=== PATIENT | female | born 1940 | race Caucasian/White ===

== ENCOUNTER 2024-06-07 12:22 | Emergency (ER) | payer OTHER, BC ==
--- OUTSIDE RECORDS SUMMARY | 2024-06-07 12:25 | XMS REPORT | Continuity of Care Document ---
Author Name Unknown Address [address] [facility]. 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 [id number]. [id number] [facility]
--- NOTE | 2024-06-07 12:50 | ER ---
Nurse's Notes [facility] Name: Wyatt Fabian Age: 83 yrs Sex: Female : 1940 Arrival Date: 06/07/2024 Time: 12:22 Bed 19 Private MD: Diagnosis: Epidermal cyst Presentation: 06/07 12:42 Chief complaint: Patient states: STATES LEFT FOOT SWELLING WITH BRUISING X 1 WEEK. db THINKS WAS BIT BY A SPIDER BUT UNSURE. IS ON ELOQUIS. TRIED HOME REMEDY OF SOAKING IN EPSUM SALT. AMBULATORY WITH CANE. Coronavirus screen: Client denies travel out of the [place] in the last 14 days. At this time, the client does not indicate any symptoms associated with coronavirus-19. Ebola Screen: Patient negative for fever greater than or equal to 101.5 degrees Fahrenheit, and additional compatible Ebola Virus Disease symptoms Patient denies exposure to infectious person. Patient denies travel to an Ebola-affected area in the 21 days before illness onset. No symptoms or risks identified at this time. Initial Sepsis Screen: Does the patient meet any 2 criteria? No. Patient's initial sepsis screen is negative. Does the patient have a suspected source of infection? No. Patient's initial sepsis screen is negative. Risk Assessment: Do you want to hurt yourself or someone else? Patient reports no desire to harm self or others. Onset of symptoms was June 07, 2024. 12:42 Method Of Arrival: Ambulatory 12:42 Acuity: DUNCAN 3 db Triage Assessment: 12:44 Bite description: bite sustained to left foot by an unknown animal, animal information: db vaccination(s) is not applicable. General: Appears in no apparent distress. comfortable, Behavior is calm, cooperative. Pain: Complains of pain in left foot. Neuro: Level of Consciousness is awake, alert, obeys commands, Oriented to person, place, time, situation. Derm: Skin is BRUISED, PURPLE AND BLUE. Historical: - Allergies: 12:44 Morphine; db - PMHx: 12:44 HEART HX; Hypothyroidism; db - PSHx: 12:44 HEART VALVE; BILATERAL HIP; BILATERAL KNEE; db - Immunization history:: Adult Immunizations unknown. - Infectious Disease History:: Denies. - Social history:: Smoking status: Patient denies any tobacco usage or history of. Screenin:58 [facility] ED Fall Risk Assessment (Adult) History of falling in the last 3 months, kc6 including since admission No falls in past 3 months (0 pts) Confusion or Disorientation No (0 pts) Intoxicated or Sedated No (0 pts) Impaired Gait No (0 pts) Mobility Assist Device Used No (0 pt) Altered Elimination No (0 pt) Score/Fall Risk Level 0 - 2 = Low Risk Oriented to surroundings. Abuse screen: Denies threats or abuse. Denies injuries from another. Nutritional screening: No deficits noted. Tuberculosis screening: No symptoms or risk factors identified. Assessment: 12:58 General: Appears in no apparent distress. comfortable, well groomed, well developed, kc6 Behavior is calm, cooperative, appropriate for age. Pain: Denies pain. Neuro: Level of Consciousness is awake, alert, obeys commands, Oriented to person, place, time, situation, Appropriate for age. Cardiovascular: Capillary refill < 3 seconds. Respiratory: Airway is patent Trachea midline Respiratory effort is even, unlabored, Respiratory pattern is regular, symmetrical. GI: No signs and/or symptoms were reported involving the gastrointestinal system. : No signs and/or symptoms were reported regarding the genitourinary system. EENT: No signs and/or symptoms were reported regarding the EENT system. Derm: Skin is intact, is healthy with good turgor, Skin is dry, Skin is normal, Skin temperature is warm Bruising that is dark purple, on left foot. Musculoskeletal: Circulation, motion, and sensation intact. Capillary refill < 3 seconds, Range of motion: intact in all extremities, Swelling present in left foot. Vital Signs: 12:42 BP 137 / 65; Pulse 94; Resp 18; Temp 98.3(O); Pulse Ox 97% ; Weight 95.25 kg; Height 5 db ft. 8 in. ; 12:42 Body Mass Index 31.93 (95.25 kg, 172.72 cm) db ED Course: 12:26 Patient arrived in ED. mr 12:28 [facility]-C [facility]5 12:28 Jenna Hernandez MD is Attending Physician. dr5 12:41 Frida Lucas RN is Primary Nurse. kc6 12:44 Triage completed. db 12:44 Arm band placed on Patient placed in an exam room. db 12:58 Patient has correct armband on for positive identification. Bed in low position. Call kc6 light in reach. Side rails up X 1. Adult w/ patient. Pulse ox on. NIBP on. Door closed. Noise minimized. Lights dimmed. Warm blanket given. Pillow given. 12:58 Patient maintains SpO2 saturation greater than 95% on room air. kc6 12:59 No provider procedures requiring assistance completed. Patient did not have IV access kc6 during this emergency room visit. Administered Medications: No medications were administered Medication: 12:59 VIS not applicable for this client. kc6 Outcome: 12:49 Discharge ordered by . dr5 12:59 Discharged to home ambulatory, with family, kc6 12:59 Condition: good 12:59 Discharge instructions given to patient, family, Instructed on discharge instructions, follow up and referral plans. medication usage, wound care, Demonstrated understanding of instructions, follow-up care, medications, wound care, Prescriptions given X 1, 12:59 Patient left the ED. kc6 Signatures: Leatha Ponce, Reg Reg mr Frida Lucas, RN RN kc6 Kathrin Farris, RN RN db Remy Wang, ADVERTISING DISPLAY ROTATOR-C ADVERTISING DISPLAY ROTATOR-Cdr5
--- NOTE | 2024-06-07 12:50 | EDPHYS ---
Physician Documentation [facility] Name: Wyatt Fabian Age: 83 yrs Sex: Female : 1940 Arrival Date: 06/07/2024 Time: 12:22 Bed 19 Private MD: ED Physician Jenna Hernandez HPI: 06/07 12:46 This 83 yrs old Female presents to ER via Ambulatory with complaints of dr5 Insect Bite. 12:46 Pt is a 83 year old female coming in with left foot pain / possible insect bite. Pt dr5 denies fever.. Historical: - Allergies: 12:44 Morphine; db - PMHx: 12:44 HEART HX; Hypothyroidism; db - PSHx: 12:44 HEART VALVE; BILATERAL HIP; BILATERAL KNEE; db - Immunization history:: Adult Immunizations unknown. - Infectious Disease History:: Denies. - Social history:: Smoking status: Patient denies any tobacco usage or history of. ROS: 12:46 Constitutional: as per hpi dr5 Exam: 12:46 Constitutional: This is a well developed, well nourished patient who is awake, alert, dr5 and in no acute distress. Head/Face: Normocephalic, atraumatic. Eyes: Pupils equal round and reactive to light, extra-ocular motions intact. Lids and lashes normal. Conjunctiva and sclera are non-icteric and not injected. Cornea within normal limits. Periorbital areas with no swelling, redness, or edema. Chest/axilla: Normal chest wall appearance and motion. Nontender with no deformity. No lesions are appreciated. Cardiovascular: Regular rate and rhythm with a normal S1 and S2. Normal PMI, no JVD. No pulse deficits. Respiratory: Lungs have equal breath sounds bilaterally, clear to auscultation. No rales, rhonchi or wheezes noted. No increased work of breathing, no retractions or nasal flaring. Abdomen/GI: Soft, non-tender, non-distended MS/ Extremity: Pulses equal, no cyanosis. Neurovascular intact. Full, normal range of motion. Neuro: Awake and alert, GCS 15, oriented to person, place, time, and situation. Cranial nerves II-XII grossly intact. Motor strength 5/5 in all extremities. Sensory grossly intact. Cerebellar exam normal. Normal gait. Psych: Awake, alert, with orientation to person, place and time. Behavior, mood, and affect are within normal limits. 12:46 Skin: Appearance: Color: normal in color, pink, Temperature: normal temperature, warm, Moisture: normal moisture, dry, cellulitis, is not appreciated, induration, is not appreciated, lesion(s), noted, and can be described as nontender, raised, Non-tender to palpation. Mild redness noted., , Vital Signs: 12:42 BP 137 / 65; Pulse 94; Resp 18; Temp 98.3(O); Pulse Ox 97% ; Weight 95.25 kg; Height 5 db ft. 8 in. ; 12:42 Body Mass Index 31.93 (95.25 kg, 172.72 cm) db MDM: 12:29 Patient medically screened. dr5 12:51 Differential diagnosis: contusion, Abscess, Epidermal Cyst, Cellulitis. Data reviewed: dr5 vital signs, nurses notes. Consideration of Admission/Observation Escalation of care including admission/observation considered. Considered admission for cellulitis spreading up leg with fever. Care significantly affected by the following Social Determinants of Health: Poor access to healthcare and/or lack of insurance, Poor access to transportation. 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 ED course: Epidermoid cyst noted to anterior midfoot with mild redness and no surrounding cellulitis. Will give course of Doxycline and have patient follow up with dermatology for discussion of cyst removal. Dermatology name / number given to family.. Administered Medications: No medications were administered Disposition Summary: 06/07/24 12:49 Discharge Ordered Notes: Location: Home dr5 Condition: Stable dr5 Diagnosis - Epidermal cyst dr5 Followup: dr5 - With: Emergency Department - When: As needed - Reason: Worsening of condition Followup: dr5 - With: Private Physician - When: 2 - 3 days - Reason: Recheck today's complaints, Continuance of care, Re-evaluation by your physician Discharge Instructions: - Discharge Summary Sheet dr5 - Epidermoid Cyst dr5 Forms: - Medication Reconciliation Form dr5 - Antibiotic Education dr5 - Prescription Opioid Use dr5 - Patient Portal Instructions dr5 - Leadership Thank You Letter dr5 Prescriptions: - Doxycycline Hyclate 100 mg Oral tablet - take 1 tablet ORAL route every 12 hours for 7 days; 14 tablet; Refills: 0, dr5 Product Selection Permitted Signatures: Kathrin Farris, RN RN Remy Aguiar, DIGITAL SALES PLANNER-C DIGITAL SALES PLANNER-Cdr5
[2024-06-07 13:18] VITALS: BP 137/65; TEMP 98.3; O2SAT 97
== END 2024-06-07 12:59 | disposition home or self-care (01) ==
LOC: ER 12:22
DX: L72.0 Epidermal cyst (principal)
CPT/HCPCS: 99283

== ENCOUNTER 2025-04-21 11:39 | Inpatient (IN) | payer OTHER, BC ==
--- OUTSIDE RECORDS SUMMARY | 2025-04-21 12:07 | XMS REPORT | Continuity of Care Document ---
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 Role Phone Darian Caceres DPM Attending Clinician [phone] DARIAN CACERES Attending Clinician Unavail able Payers Payer Name Policy Type Policy Number Effective Date Expirati on Date Source [email or web address] [id number] 2024 00:00:00 MEDICARE PART A AND B Medicare [id number] 2024 00:00:00 Problems Condition Name Condition Details Condition Category Status Onset Date Resolution Date Last Treatment Date Treating Clinician Comments Source Hypothyroi dism Hypothyroi dism Problem Active 05-20 00:00: 00 [facility] Idiopathic peripheral neuropathy Idiopathic Peripheral Neuropathy Problem Active 05-20 00:00: 00 [facility] Atrial fibrillati on Atrial Fibrillati on Problem Active 05-20 00:00: 00 [facility] Acid reflux Acid Reflux Problem Active 05-20 00:00: 00 [facility] Night sweats Night Sweats Problem Active 05-20 00:00: 00 [facility] Increased frequency of urination Increased Frequency of Urination Problem Active 05-20 00:00: 00 [facility] Allergies, Adverse Reactions, Alerts Allergy Name Allergy Type Status Severity Reaction(s) Onset Date Inactive Date Treating Clinician Comments Source Penicill in G Propensi ty to adverse reaction s Active 2023-09 00:00: 00 Deepika Pollock Epic Social History Social Habit Start Date Stop Date Quantity Comments Source ASSERTION Possible M marlys Pollock Epic Gender identity Damir patrice Pollock Epic Sexual orientation M emopatrice Pollock Epic Smoking Status Start Date Stop Date Source Tobacco smoking consumption unknown [facility] Never Smoker [facility] Medications Ordered Medication Name Filled Medication Name Start Date Stop Date Current Medication? Ordering Clinician Indication Dosage Frequency Signature (SIG) Comments Components Source Allergy Allergy No Allergy [facility] amiodarone 200 mg tablet Take 1 tablet every day by oral route. amiodarone 200 mg tablet Take 1 tablet every day by oral route. No 1 Q1D amiodarone 200 mg tablet Take 1 tablet every day by oral route. [facility] amitriptyli ne 75 mg tablet Take 1 tablet every day by oral route. amitriptyli ne 75 mg tablet Take 1 tablet every day by oral route. No 1 Q1D amitriptyl ine 75 mg tablet Take 1 tablet every day by oral route. [facility] Calcium 600 Calcium 600 No Ca lcium 600 [facility] Eliquis 5 mg tablet Take 1 tablet twice a day by oral route. Eliquis 5 mg tablet Take 1 tablet twice a day by oral route. No 1 BID Eliquis 5 mg tablet Take 1 tablet twice a day by oral route. [facility] gabapentin 300 mg capsule Take 1 capsule 3 times a day by oral route for 30 days. gabapentin 300 mg capsule Take 1 capsule 3 times a day by oral route for 30 days. No 1capsul e(s) TID gabapentin 300 mg capsule Take 1 capsule 3 times a day by oral route for 30 days. [facility] levothyroxi ne 125 mcg capsule Take 1 capsule every day by oral route. levothyroxi ne 125 mcg capsule Take 1 capsule every day by oral route. No 1capsul e(s) Q1D levothyrox ine 125 mcg capsule Take 1 capsule every day by oral route. [facility] pantoprazol e 40 mg tablet,valdo yed release Take 1 tablet every day by oral route. pantoprazol e 40 mg tablet,valdo yed release Take 1 tablet every day by oral route. No 1 Q1D pantoprazo le 40 mg tablet,del ayed release Take 1 tablet every day by oral route. [facility] tramadol 50 mg tablet Take 1 tablet every 6 hours by oral route. tramadol 50 mg tablet Take 1 tablet every 6 hours by oral route. No 1 Q6H tramadol 50 mg tablet Take 1 tablet every 6 hours by oral route. [facility] trazodone 50 mg tablet Take 1 tablet every day by oral route. trazodone 50 mg tablet Take 1 tablet every day by oral route. No 1 Q1D trazodone 50 mg tablet Take 1 tablet every day by oral route. [facility] Vitamin D3 Vitamin D3 No Vitamin D3 [facility] zolpidem 10 mg tablet Take 1 tablet every day by oral route. zolpidem 10 mg tablet Take 1 tablet every day by oral route. No 1 Q1D zolpidem 10 mg tablet Take 1 tablet every day by oral route. [facility] Vital Signs Vital Name Observation Time Observation Value Comments S ource BP Systolic 2024-05-20 00:00:00 143 mm[Hg] [facility] Body Weight 2024-05-20 00:00:00 210.2 [lb_av] [facility] BP Diastolic 2024-05-20 00:00:00 79 mm[Hg] [facility] Height 2024-05-20 00:00:00 68 [in_i] [facility] BMI (Body Mass Index) 2024-05-20 00:00:00 32 kg/m2 [facility] Procedures Procedure Date / Time Performed Performing Clinicia n Source Procedure on Hip 2020-09-02 00:00:00 [facility] Procedure on Knee 2020-09-02 00:00:00 [facility] Ophthalmology - Cataract Surgery 2015-09-02 00:00:00 [facility] Procedure on Hip 2012-09-02 00:00:00 [facility] Procedure on Knee 2010-09-02 00:00:00 [facility] Appendectomy 1985-09-02 00:00:00 [facility] Thyroid Surgery 1976-09-02 00:00:00 [facility] Hysterectomy/bladder Repair 1975-09-02 00:00:00 [facility] Hernia Repair 1975-09-02 00:00:00 [facility] Breast Surgery - Lumpectomy 1964-09-02 00:00:00 [facility] Tonsillectomy 1944-09-02 00:00:00 [facility] Encounters Start Date/Time End Date/Time Encounter Type Admission Type Attending [facility] Care Facility Care Department Encounter ID Source 2024-06-24 12:00:00 2024-06-24 12:56:07 Office Visit Darian Caceres [facility] ..[id number] Deepika Pollock [facility] 2024-06-24 11:56:48 2024-06-24 12:56:07 Outpatient Elective DARIAN CACERES [facility] [id number] [facility] 2024-06-10 11:50:00 2024-06-10 12:48:37 Consult Darian Caceres [facility] ..[id number] [facility]24-[facility]-10 11:22:58 2024-06-10 12:48:37 Outpatient Elective DARIAN CACERES [facility] [id number] [facility] 2024-05-20 00:00:00 2024-05-20 00:00:00 FAN Langston: [address], [address], [place] [address] , Ph. Count includes the [facility] - [id number]* [id number] [facility] Results Test Description Test Time Test Comments Results Result Co mments Source [facility] Notes Upcoming Encounters Date/Time Note Provider Source Health Maintenance Due Date Last Done Comments Bone Density Scan 1940 Medicare Annual Wellness (AWV) 1940 DTaP/Tdap/Td Vaccines (1 - Tdap) 11/21/1958 Zoster Vaccines (1 of 2) 11/21/1989 Respiratory Syncytial Virus (RSV) or >=60 (1 - 1-dose 60+ series) 1999 Pneumococcal Vaccine: 65+ Ye ars (1 of 1 - PCV) 11/21/2004 Influenza Vaccine (#1) 2024 HIB Vaccines Aged Out No longer eligi ble based on patient's age to complete this topic HPV Vaccines Aged Out No longer eligi ble based on patient's age to complete this topic Hepatitis A Vaccines Aged Out No long er eligible based on patient's age to complete this topic Hepatitis B Vaccines Aged Out No long er eligible based on patient's age to complete this topic IPV Vaccines Aged Out No longer eligi ble based on patient's age to complete this topic Meningococcal Vaccine Aged Out No manfred irina eligible based on patient's age to complete this topic Rotavirus Vaccines Aged Out No longer eligible based on patient's age to complete this topic [id number] 12:56:43 Diagnosis Abnormal foot finding - Prim wale [id number] 12:56:43* Darian Caceres, JAREK - 06/24/2024 12:00 PM CDT CHIEF COMPLAINT: HEMATOMA, LEFT DORSAL MIDFOOT HISTORY OF PRESENT ILLNESS: Patient states symptoms improving with local care, compression, offloading Patient denies infection, injury, open wounds Patient states pain currently rated 2/10 on palpation, left dorsal midfoot --- Patient states developed hematoma from unknown cause, starting approximately May 27, 2024 Patient unsure of the cause Patient denies previous events with similar symptoms Patient states presented to [facility] Room, provided antibiotics, advised to follow-up with specialist, approximately June 07, 2024 Patient states pain currently graded 4/10 on palpation OBJECTIVE: PHYSICAL EXAM OF THE LOWER EXTREMITY: VASCULAR: (+) 1/4 non-pitting edema, LEFT dorsal midfoot (+) improving ecchymosis, LEFT dorsal midfoot (-) erythema Dorsal pedis pulse, graded 2/4; bilateral Posterior tibial pulse, graded 2/4; bilateral Capillary Refill time: within normal limits; bilateral (-) varicosities (+) pedal hair growth NEUROLOGICAL: (+) sensation with 5.07 [place] monofilament examination to the most distal lower extremity (-) tinel's sign (-) clonus present DERMATOLOGICAL: (-) signs of infection (-) fracture blisters (-) tenting of the skin (-) open wounds (-) abscess (-) ischemic tissue (-) other primary or secondary lesions (+) normal temperature when compared to contralateral limb (+) normal color, tugor, and elasticity. 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 Patient Instructions: Discussion: A detailed discussion was provided to the patient with specific reference to etiology, pathology, alternate treatment options, and prognosis. All risks and complications (including side effects) with each treatment/medication alternative were outlined in detail including but not limited to: Pain, swelling, numbness, loss of function, loss of limb, bleeding, hematoma, scarring, failure to relieve condition, surgery, additional/revisional surgery, reflex sympathetic dystrophy, complex regional pain syndrome, reoccurrence of deformity, joint stiffness, flail toe, bone and/or soft tissue infection, blood clots, pulmonary embolism, possible , delayed or non-healing. X-rays, graphs and drawings were all used to assist with patient comprehension when appropriate. All patients questions were answered and stated they fully understood. No guarantee as to results or outcome of treatment was made. I have discussed with the patient or legally responsible person prior to obtaining consent: the risks, potential benefits and drawbacks, significant alternatives, potential for problems related to recuperation, likelihood of success, and possible results of non-treatment, and the patient or the legally responsible person has agreed to proceed. Pollock2024-10-23 12:56:43Upcoming Encounters Health Maintenance Due Date Last Done Comments Bone Density Scan 1940 Medicare Annual Wellness (AWV) 1940 DTaP/Tdap/Td Vaccines (1 - Tdap) 11/21/1958 Zoster Vaccines (1 of 2) 11/21/1989 Respiratory Syncytial Virus (RSV) or >=60 (1 - 1-dose 60+ series) 1999 Pneumococcal Vaccine: 65+ Ye ars (1 of 1 - PCV) 11/21/2004 Influenza Vaccine (#1) 2024 HIB Vaccines Aged Out No longer eligi ble based on patient's age to complete this topic HPV Vaccines Aged Out No longer eligi ble based on patient's age to complete this topic Hepatitis A Vaccines Aged Out No long er eligible based on patient's age to complete this topic Hepatitis B Vaccines Aged Out No long er eligible based on patient's age to complete this topic IPV Vaccines Aged Out No longer eligi ble based on patient's age to complete this topic Meningococcal Vaccine Aged Out No manfred irina eligible based on patient's age to complete this topic Rotavirus Vaccines Aged Out No longer eligible based on patient's age to complete this topic [facility] [id number] 12:56:43 Diagnosis Abnormal foot finding - Prim wale [facility] [id number] 12:56:43* Darian Caceres, GAVIN - 06/24/2024 12:00 PM CDT CHIEF COMPLAINT: HEMATOMA, LEFT DORSAL MIDFOOT HISTORY OF PRESENT ILLNESS: Patient states symptoms improving with local care, compression, offloading Patient denies infection, injury, open wounds Patient states pain currently rated 2/10 on palpation, left dorsal midfoot --- Patient states developed hematoma from unknown cause, starting approximately May 27, 2024 Patient unsure of the cause Patient denies previous events with similar symptoms Patient states presented to [facility] Emergency Room, provided antibiotics, advised to follow-up with specialist, approximately June 07, 2024 Patient states pain currently graded 4/10 on palpation OBJECTIVE: PHYSICAL EXAM OF THE LOWER EXTREMITY: VASCULAR: (+) 1/4 non-pitting edema, LEFT dorsal midfoot (+) improving ecchymosis, LEFT dorsal midfoot (-) erythema Dorsal pedis pulse, graded 2/4; bilateral Posterior tibial pulse, graded 2/4; bilateral Capillary Refill time: within normal limits; bilateral (-) varicosities (+) pedal hair growth NEUROLOGICAL: (+) sensation with 5.07 [place] monofilament examination to the most distal lower extremity (-) tinel's sign (-) clonus present DERMATOLOGICAL: (-) signs of infection (-) fracture blisters (-) tenting of the skin (-) open wounds (-) abscess (-) ischemic tissue (-) other primary or secondary lesions (+) normal temperature when compared to contralateral limb (+) normal color, tugor, and elasticity. 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 Patient Instructions: Discussion: A detailed discussion was provided to the patient with specific reference to etiology, pathology, alternate treatment options, and prognosis. All risks and complications (including side effects) with each treatment/medication alternative were outlined in detail including but not limited to: Pain, swelling, numbness, loss of function, loss of limb, bleeding, hematoma, scarring, failure to relieve condition, surgery, additional/revisional surgery, reflex sympathetic dystrophy, complex regional pain syndrome, reoccurrence of deformity, joint stiffness, flail toe, bone and/or soft tissue infection, blood clots, pulmonary embolism, possible , delayed or non-healing. X-rays, graphs and drawings were all used to assist with patient comprehension when appropriate. All patients questions were answered and stated they fully understood. No guarantee as to results or outcome of treatment was made. I have discussed with the patient or legally responsible person prior to obtaining consent: the risks, potential benefits and drawbacks, significant alternatives, potential for problems related to recuperation, likelihood of success, and possible results of non-treatment, and the patient or the legally responsible person has agreed to proceed. [facility] [id number] 12:54:30Upcoming Encounters Health Maintenance Due Date Last Done Comments Bone Density Scan 1940 DTaP/Tdap/Td Vaccines (1 - Tdap) 11/21/1958 Zoster Vaccines (1 of 2) 11/21/1989 Respiratory Syncytial Virus (RSV) or >=60 (1 - 1-dose 60+ series) 1999 Pneumococcal Vaccine: 65+ Ye ars (1 of 1 - PCV) 11/21/2004 Influenza Vaccine (#1) 2024 HIB Vaccines Aged Out No longer eligi ble based on patient's age to complete this topic HPV Vaccines Aged Out No longer eligi ble based on patient's age to complete this topic Hepatitis A Vaccines Aged Out No long er eligible based on patient's age to complete this topic Hepatitis B Vaccines Aged Out No long er eligible based on patient's age to complete this topic IPV Vaccines Aged Out No longer eligi ble based on patient's age to complete this topic Meningococcal Vaccine Aged Out No manfred irina eligible based on patient's age to complete this topic Rotavirus Vaccines Aged Out No longer eligible based on patient's age to complete this topic [facility] [id number] 12:54:30 Diagnosis Abnormal foot finding - Prim wale [facility] [id number] 12:54:30* Darian Caceres DPM - 06/10/2024 11:50 AM CDT CHIEF COMPLAINT: HEMATOMA, LEFT DORSAL MIDFOOT HISTORY OF PRESENT ILLNESS: Patient states developed hematoma from unknown cause, starting approximately May 27, 2024 Patient unsure of the cause Patient denies previous events with similar symptoms Patient states presented to [facility] Emergency Room, provided antibiotics, advised to follow-up with specialist, approximately June 07, 2024 Patient states pain currently graded 4/10 on palpation OBJECTIVE: PHYSICAL EXAM OF THE LOWER EXTREMITY: VASCULAR: (+) edema, LEFT dorsal midfoot (+) ecchymosis, LEFT dorsal midfoot (-) erythema Dorsal pedis pulse, graded 2/4; bilateral Posterior tibial pulse, graded 2/4; bilateral Capillary Refill time: within normal limits; bilateral (-) varicosities (+) pedal hair growth NEUROLOGICAL: (+) sensation with 5.07 [place] monofilament examination to the most distal lower extremity (-) tinel's sign (-) clonus present DERMATOLOGICAL: (-) signs of infection (-) fracture blisters (-) tenting of the skin (-) open wounds (-) abscess (-) ischemic tissue (-) other primary or secondary lesions (+) normal temperature when compared to contralateral limb (+) normal color, tugor, and elasticity. 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 Patient Instructions: Discussion: A detailed discussion was provided to the patient with specific reference to etiology, pathology, alternate treatment options, and prognosis. All risks and complications (including side effects) with each treatment/medication alternative were outlined in detail including but not limited to: Pain, swelling, numbness, loss of function, loss of limb, bleeding, hematoma, scarring, failure to relieve condition, surgery, additional/revisional surgery, reflex sympathetic dystrophy, complex regional pain syndrome, reoccurrence of deformity, joint stiffness, flail toe, bone and/or soft tissue infection, blood clots, pulmonary embolism, possible , delayed or non-healing. X-rays, graphs and drawings were all used to assist with patient comprehension when appropriate. All patients questions were answered and stated they fully understood. No guarantee as to results or outcome of treatment was made. I have discussed with the patient or legally responsible person prior to obtaining consent: the risks, potential benefits and drawbacks, significant alternatives, potential for problems related to recuperation, likelihood of success, and possible results of non-treatment, and the patient or the legally responsible person has agreed to proceed. YT Ramses Pollock
[2025-04-21 12:41] LABS: Absolute Lymphocytes (CBC) 1.7 K/uL (0.7-4.9); Hematocrit 43.1 % (36.0-45.0); Hemoglobin 14.4 g/dL (12.0-15.0); MCH 30.5 pg (27.0-35.0); MCHC 33.4 g/dL (32.0-36.0); MCV 91.4 fL (80-100); MPV 11.5 fL (7.6-11.3); Nucleated RBC Absolute Count 0.0 (0-0); Nucleated Red Blood Cells % 0.1 % (0-0); RBC Red Blood Cell Count 4.72 M/uL (3.86-4.86); White Blood Count 5.60 thou/uL (4.3-10.9)
[2025-04-21 12:47] LABS: PT Prothrombin Time 18.5 SECONDS (10-13.0); Protime INR 1.66
[2025-04-21 13:04] LABS: ALT/SGPT 26.0 U/L (13-56); AST/SGOT 22.0 U/L (15-37); Albumin 3.4 g/dL (3.4-5.0); Albumin/Globulin Ratio 0.9 (1.1-1.8); Alkaline Phosphatase 75.0 U/L (45-117); Anion Gap 10.0 mEq/L (5.0-15.0); BUN Blood Urea Nitrogen 15.0 mg/dL (7-18); Bilirubin Indirect, Calculated 0.4 mg/dL (0.2-0.8); Globulin 3.9 g/dL (2.3-3.5); Glucose Level 119.0 mg/dL (74-106); Magnesium 2.2 mg/dL (1.6-2.4); NT PRO-BNP 312.0 pg/mL (<450); Potassium 4.0 mEq/L (3.5-5.1); Troponin High Sensitivity 6.7 pg/mL (<58.9)
[2025-04-21] MEDS ORDERED: NA CHLORIDE 0.9% 500 ML ONE (13:12)
--- NOTE | 2025-04-21 14:12 | RAD REPORT ---
EXAMINATION: CERVICAL SPINE 3 VIEWS CLINICAL INDICATION: Female, 84 years old. PAIN TECHNIQUE: AP and lateral views of the cervical spine were obtained. COMPARISON: No prior exam. FINDINGS: Alignment: The cervical spine has normal alignment. Bones: Vertebral body heights are maintained. No aggressive osseous lesions. Moderate to advanced fac et and endplate degenerative changes throughout the cervical spine, cervical levels visualized down to C6 level. Discs: Moderate to advanced disc height loss most pronounced at C3-4. Soft Tissue: No soft tissue abnormalities. IMPRESSION: No acute cervical spine abnormality. Degenerative changes as above.
--- NOTE | 2025-04-21 14:13 | RAD REPORT ---
EXAMINATION: ONE VIEW CHEST XR CLINICAL INDICATION: Female, 84 years old.,COUGH TECHNIQUE: Frontal chest projection is submitted. Examination is limited by patient positioning and t echnique. COMPARISON: No prior exam. FINDINGS: The lungs are well inflated and clear. No pneumothorax or sizable effusion. The heart is normal in s ize. Mediastinal contours are unremarkable apart from sequelae of prosthetic aortic valve placement. Left chest wall rhythm monitoring device in place. IMPRESSION: No acute intrathoracic abnormalities.
[2025-04-21] MEDS ORDERED: PANTOPRAZOLE 40 MG INJ ONE (15:39)
[2025-04-21] MEDS ORDERED: THIAMINE 200 MG/2 ML INJ ONE (15:39)
[2025-04-21] MEDS ORDERED: MULTIVITAMINS 10 ML VIAL (INJ) IV ONE (15:39)
[2025-04-21] MEDS ORDERED: GLUCAGON 1 MG/VIAL ONE (15:40)
[2025-04-21] MEDS ORDERED: FOLIC ACID 5 MG/ML VIAL ONE (15:40)
[2025-04-21] MEDS ORDERED: NA CHLORIDE 0.9% 1,000 ML ONE (15:40)
--- NOTE | 2025-04-21 16:01 | ER ---
Nurse's Notes [facility] Name: Wyatt Fabian Age: 84 yrs Sex: Female : 1940 Arrival Date: 04/21/2025 Time: 11:39 Bed 5 Private MD: Diagnosis: Food in esophagus;Foreign body in esophagus-PILLS;[facility] (current) use of anticoagulants;Unspecified atrial flutter-PERSISTANT Presentation: 04/21 11:48 Chief complaint: Patient states: Trouble swallowing since last night around 11 PM. ll1 Coronavirus screen: Client denies travel out of the [place] in the last 14 days. At this time, the client does not indicate any symptoms associated with coronavirus-19. Ebola Screen: Patient denies travel to an Ebola-affected area in the 21 days before illness onset. Initial Sepsis Screen: Does the patient meet any 2 criteria? No. Patient's initial sepsis screen is negative. Does the patient have a suspected source of infection? No. Patient's initial sepsis screen is negative. Risk Assessment: Do you want to hurt yourself or someone else? Patient reports no desire to harm self or others. Onset of symptoms was April 20, 2025. 11:48 Method Of Arrival: Ambulatory ll1 11:48 Acuity: DUNCAN 3 ll1 Triage Assessment: 13:18 General: Appears in no apparent distress. Behavior is cooperative, appropriate for age, bp anxious. Pain: Denies pain. EENT: No deficits noted. Neuro: No deficits noted. Cardiovascular: No deficits noted. Respiratory: No deficits noted. GI: No signs and/or symptoms were reported involving the gastrointestinal system. : No signs and/or symptoms were reported regarding the genitourinary system. Derm: No deficits noted. Musculoskeletal: No deficits noted. Historical: - Allergies: 11:50 Morphine; ll1 11:50 Codeine; ll1 11:50 "all phines"; ll1 - PMHx: 11:50 HEART HX; Hypothyroidism; ll1 - PSHx: 11:50 Bilateral Hip; bilateral knee; heart valve; Thyroidectomy; ll1 - Immunization history:: Adult Immunizations up to date. - Social history:: Smoking status: Patient denies any tobacco usage or history of. - Family history:: not pertinent. Screenin:19 [facility] ED Fall Risk Assessment (Adult) History of falling in the last 3 months, bp including since admission No falls in past 3 months (0 pts) Confusion or Disorientation No (0 pts) Intoxicated or Sedated No (0 pts) Impaired Gait No (0 pts) Mobility Assist Device Used No (0 pt) Altered Elimination No (0 pt) Score/Fall Risk Level 0 - 2 = Low Risk Oriented to surroundings. Abuse screen: Denies threats or abuse. Denies injuries from another. Nutritional screening: No deficits noted. Tuberculosis screening: No symptoms or risk factors identified. Assessment: 13:09 Reassessment: Patient and/or family updated on plan of care and expected duration. Pain ll1 level reassessed. 15:49 Reassessment: ENDOSCOPY ADMIT PENDING. bp Vital Signs: 11:48 BP 142 / 92; Pulse 100; Resp 17; Temp 97.8; Pulse Ox 100% ; Weight 91.17 kg; Height 5 ll1 ft. 8 in. ; Pain 0/10; 13:18 BP 140 / 81; Pulse 61; Resp 16; Pulse Ox 99% ; bp 15:49 BP 152 / 85; Pulse 98; Resp 16; Pulse Ox 98% ; bp 11:48 Body Mass Index 30.56 (91.17 kg, 172.72 cm) ll1 11:48 Pain Scale: Adult ll1 ED Course: 11:41 Patient arrived in ED. mr 11:48 Arm band placed on. ll1 11:50 Triage completed. ll1 11:52 Roman Jacob MD is Attending Physician. usha 12:35 Basic Metabolic Panel Sent. bc6 12:35 CBC with Diff Sent. bc6 12:35 LFT's Sent. bc6 12:35 Magnesium Sent. bc6 12:35 NT PRO-BNP Sent. bc6 12:35 PT-INR Sent. bc6 12:35 Troponin HS Sent. bc6 12:35 Initial lab(s) drawn, by tx, sent to lab. Inserted saline lock: 20 gauge in left bc6 antecubital area, using aseptic technique. Blood collected. Flushed with 10 mL NS. 13:08 Patient placed in an exam room, on a stretcher. ll1 13:09 Shayne Bui, RN is Primary Nurse. bp 13:13 XRAY Chest (1 view) In Process Unspecified. EDMS 13:13 Neck Soft Tissue XRAY In Process Unspecified. EDMS 13:19 Patient has correct armband on for positive identification. bp 16:00 Juan Perez is Hospitalizing Provider. [facility] Administered Medications: 13:17 Drug: NS 0.9% IV 500 ml 500 ml IV at 1 bolus once; to be given as a bolus over 30 bp minutes Volume: 500 ml; Route: IV; Rate: 1 bolus; Site: left antecubital; 15:48 Drug: Banana Bag - (Multivitamin IV 1 amp, NS 0.9% IV 1000 ml, Thiamine IV 100 mg, bp foLIC Acid IVPB 1 mg) IV at 150 ml/hr once Route: IV; Rate: 150 ml/hr; Site: left antecubital; 15:49 Drug: Pantoprazole IVP 40 mg IVP once Route: IVP; Site: left forearm; bp 15:49 Drug: Glucagon IVP 1 mg IVP once Route: IVP; Site: left forearm; bp Outcome: 16:01 Decision to Hospitalize by Provider. [facility] 16:24 Patient left the ED. bc6 Signatures: Dispatcher [employer] EDMS Roman Jacob MD MD cha Rivera, Mary, [facility] Shayne Carney, RN RN Mercedes Abdullahi RN RN 1 Leonor Dwyer bc6
--- NOTE | 2025-04-21 16:01 | EDPHYS ---
Physician Documentation [facility] Name: Wyatt Fabian Age: 84 yrs Sex: Female : 1940 Arrival Date: 04/21/2025 Time: 11:39 Bed 5 Private MD: ED Physician Roman Jacob HPI: 04/21 15:45 This 84 yrs old Female presents to ER via Ambulatory with complaints of usha Difficulty Swallowing. 15:45 The patient presents with dysphagia, a foreign body sensation in the throat. The usha patient describes throat pain as constant. Onset: The symptoms/episode began/occurred last night. Severity of symptoms: At their worst the symptoms were moderate, in the emergency department the symptoms are unchanged. Modifying factors: The symptoms are alleviated by nothing, the symptoms are aggravated by swallowing. Associated signs and symptoms: The patient has no apparent associated signs or symptoms. The patient has not experienced similar symptoms in the past. Historical: - Allergies: 11:50 Morphine; ll1 11:50 Codeine; ll1 11:50 "all phines"; ll1 - PMHx: 11:50 HEART HX; Hypothyroidism; ll1 - PSHx: 11:50 Bilateral Hip; bilateral knee; heart valve; Thyroidectomy; ll1 - Immunization history:: Adult Immunizations up to date. - Social history:: Smoking status: Patient denies any tobacco usage or history of. - Family history:: not pertinent. ROS: 15:45 Constitutional: Negative for fever, chills, and weight loss, Eyes: Negative for injury, usha pain, redness, and discharge, ENT: Negative for injury, pain, and discharge, Neck: Negative for injury, pain, and swelling, Cardiovascular: Negative for chest pain, palpitations, and edema, Respiratory: Negative for shortness of breath, cough, wheezing, and pleuritic chest pain, Back: Negative for injury and pain, : Negative for injury, bleeding, discharge, and swelling, MS/Extremity: Negative for injury and deformity, Skin: Negative for injury, rash, and discoloration, Neuro: Negative for headache, weakness, numbness, tingling, and seizure, Psych: Negative for depression, anxiety, suicide ideation, homicidal ideation, and hallucinations, Allergy/Immunology: Negative for hives, rash, and allergies, Endocrine: Negative for neck swelling, polydipsia, polyuria, polyphagia, and marked weight changes, Hematologic/Lymphatic: Negative for swollen nodes, abnormal bleeding, and unusual bruising, 15:45 Abdomen/GI: Positive for dysphagia, FB SENSATION, Exam: 15:45 Constitutional: This is a well developed, well nourished patient who is awake, alert, usha and in no acute distress. Head/Face: Normocephalic, atraumatic. Eyes: Pupils equal round and reactive to light, extra-ocular motions intact. Lids and lashes normal. Conjunctiva and sclera are non-icteric and not injected. Cornea within normal limits. Periorbital areas with no swelling, redness, or edema. ENT: Nares patent. No nasal discharge, no septal abnormalities noted. Tympanic membranes are normal and external auditory canals are clear. Oropharynx with no redness, swelling, or masses, exudates, or evidence of obstruction, uvula midline. Mucous membranes moist. Neck: Trachea midline, no thyromegaly or masses palpated, and no cervical lymphadenopathy. Supple, full range of motion without nuchal rigidity, or vertebral point tenderness. No Meningismus. Chest/axilla: Normal chest wall appearance and motion. Nontender with no deformity. No lesions are appreciated. Cardiovascular: Regular rate and rhythm with a normal S1 and S2. No gallops, murmurs, or rubs. Normal PMI, no JVD. No pulse deficits. Respiratory: Lungs have equal breath sounds bilaterally, clear to auscultation and percussion. No rales, rhonchi or wheezes noted. No increased work of breathing, no retractions or nasal flaring. Abdomen/GI: Soft, non-tender, with normal bowel sounds. No distension or tympany. No guarding or rebound. No evidence of tenderness throughout. Back: No spinal tenderness. No costovertebral tenderness. Full range of motion. Female : Normal external genitalia. Skin: Warm, dry with normal turgor. Normal color with no rashes, no lesions, and no evidence of cellulitis. MS/ Extremity: Pulses equal, no cyanosis. Neurovascular intact. Full, normal range of motion., bilateral aka Neuro: Awake and alert, GCS 15, oriented to person, place, time, and situation. Cranial nerves II-XII grossly intact. Motor strength 5/5 in all extremities. Sensory grossly intact. Cerebellar exam normal. Normal gait. Psych: Awake, alert, with orientation to person, place and time. Behavior, mood, and affect are within normal limits. 15:45 ECG was reviewed by the Attending Physician. Vital Signs: 11:48 BP 142 / 92; Pulse 100; Resp 17; Temp 97.8; Pulse Ox 100% ; Weight 91.17 kg; Height 5 ll1 ft. 8 in. ; Pain 0/10; 13:18 BP 140 / 81; Pulse 61; Resp 16; Pulse Ox 99% ; bp 15:49 BP 152 / 85; Pulse 98; Resp 16; Pulse Ox 98% ; bp 11:48 Body Mass Index 30.56 (91.17 kg, 172.72 cm) ll1 11:48 Pain Scale: Adult ll1 MDM: 11:52 Medical Screening Exam initiated usha 15:57 Differential diagnosis: gastroesophageal reflux disease, pharyngitis, upper respiratory usha infection, FOOD BOLUS OF ESOPHAGUS, PILLS. Data reviewed: vital signs, nurses notes, lab test result(s), EKG, radiologic studies, plain films. Consideration of Admission/Observation Patient was admitted/placed on observation. Escalation of care including admission/observation considered. 04/21 11:53 Order name: Basic Metabolic Panel; Complete Time: 13:36 [facility] 04/21 11:53 Order name: CBC with Diff; Complete Time: 13:36 [facility] 04/21 11:53 Order name: LFT's; Complete Time: 13:36 [facility] 04/21 11:53 Order name: Magnesium; Complete Time: 13:36 [facility] 04/21 11:53 Order name: NT PRO-BNP; Complete Time: 13:36 [facility] 04/21 11:53 Order name: PT-INR; Complete Time: 13:36 [facility] 04/21 11:53 Order name: Troponin HS; Complete Time: 13:36 [facility] 04/21 11:53 Order name: UA Rfx Sony Cult if indicated [facility] 04/21 11:53 Order name: XRAY Chest (1 view); Complete Time: 15:26 [facility] 04/21 11:53 Order name: Neck Soft Tissue XRAY; Complete Time: 15:26 [facility] 04/21 16:12 Order name: CONS Physician Consult EDMS 04/21 11:53 Order name: Cardiac monitoring; Complete Time: 13:10 [facility] 04/21 11:53 Order name: EKG - Nurse/Tech; Complete Time: 12:35 [facility] 04/21 11:53 Order name: IV Saline Lock; Complete Time: 12:35 [facility] 04/21 11:53 Order name: Labs collected and sent; Complete Time: 12:35 [facility] 04/21 11:53 Order name: O2 Per Protocol; Complete Time: 13:10 [facility] 04/21 11:53 Order name: O2 Sat Monitoring; Complete Time: 13:10 [facility] 04/21 11:53 Order name: PO challenge; Complete Time: 13:44 [facility] 04/21 13:36 Order name: Misc. Order: please PO; Complete Time: 13:44 [facility] 04/21 15:25 Order name: NPO; Complete Time: 15:30 [facility] EC:45 Rate is 88 beats/min. Rhythm is irregularly irregular. QRS [place] is Normal. IN interval usha is normal. QRS interval is normal. QT interval is normal. No Q waves. T waves are Normal. No ST changes noted. Clinical impression: Atrial Flutter. Administered Medications: 13:17 Drug: NS 0.9% IV 500 ml 500 ml IV at 1 bolus once; to be given as a bolus over 30 bp minutes Volume: 500 ml; Route: IV; Rate: 1 bolus; Site: left antecubital; 15:48 Drug: Banana Bag - (Multivitamin IV 1 amp, NS 0.9% IV 1000 ml, Thiamine IV 100 mg, bp foLIC Acid IVPB 1 mg) IV at 150 ml/hr once Route: IV; Rate: 150 ml/hr; Site: left antecubital; 15:49 Drug: Pantoprazole IVP 40 mg IVP once Route: IVP; Site: left forearm; bp 15:49 Drug: Glucagon IVP 1 mg IVP once Route: IVP; Site: left forearm; bp Disposition Summary: 04/21/25 16:01 Hospitalization Ordered Notes: Hospitalization Status: Observation usha Provider: Juan Perez cha Location: Telemetry/MedSurg (observation) usha Condition: Stable usha Problem: new usha Symptoms: are unchanged usha Bed/Room Type: Standard usha Room Assignment: 210(04/21/25 16:18) bd Diagnosis - Food in esophagus usha - Foreign body in esophagus - PILLS usha - intermediate (current) use of anticoagulants usha - Unspecified atrial flutter - PERSISTANT usha Forms: - Medication Reconciliation Form usha - SBAR form usha - Leadership Thank You Letter [facility] Signatures: Dispatcher [employer] EDMS SherryNiviaAureRoman Herman MD MD cha Peltier, Brian, RN RN bp Mercedes Horan RN RN ll1 Corrections: (The following items were deleted from the chart) 11:53 11:53 BASIC METABOLIC PANEL+C.LAB.BRZ ordered. EDMS EDMS 11:53 11:53 CBC+H.LAB.BRZ ordered. EDMS EDMS 11:53 11:53 HEPATIC FUNCTION+C.LAB.BRZ ordered. EDMS EDMS 11:53 11:53 MAGNESIUM+C.LAB.BRZ ordered. EDMS EDMS 11:53 11:53 PROBNP+C.LAB.BRZ ordered. EDMS EDMS 11:53 11:53 PROTIME (+INR)+COAG.LAB.BRZ ordered. EDMS EDMS 11:53 11:53 Troponin High Sensitivity+C.LAB.BRZ ordered. EDMS EDMS 11 11:53 UA Rfx Sony Cult if indicated+U.LAB.BRZ ordered. EDMS EDMS 11:53 11:53 Chest Single View+RAD.RAD.BRZ ordered. EDMS EDMS 16:18 16:01 [facility]
--- NOTE | 2025-04-21 16:18 | P.HP ---
Certification for Inpatient Patient admitted to: Observation With expected LOS: <2 Midnights Patient will require the following post-hospital care: None Practitioner: I am a practitioner with admitting privileges, knowledge of patient current condition, hospital course, and medical plan of care. Services: Services provided to patient in accordance with Admission requirements found in Title 42 Section 412.3 of the Code of Federal Regulations Patient History Date of Service: 04/21/25 Reason for admission: Food bolus History of Present Illness: Wyatt Fabian is an 84 year old female with Pmhx hypothyroidism, A-fib, who presents to the ED with dysphagia reporting a foreign body sensation is in his throat since last night. Dr. Bustos was consulted and took him for a scope immediately. Laboratory evaluation significant for BUN/creatinine 15/1.17, GFR 46, serum glucose 119. Chest x-ray reports "No acute intrathoracic abnormalities." Soft tissue neck reports "No acute cervical spine abnormality. Degenerative changes as above." Wyatt will be admitted to hospitalist service for further evaluation and treatment of food bolus, Dr. Alanis consulted. Allergies codeine Allergy (Verified 04/21/25 17:01) Itching/Hives/Rash morphine Allergy (Verified 04/21/25 17:01) Itching/Hives/Rash - Past Medical/Surgical History -: Hypothyroidism -: afib -: bilateral hip -: bilateral knee -: heart valve -: thyroidectomy - Family History Family History: Reviewed- Non-Contributory - Social History Smoking Status: Never smoker Alcohol use: No CD- Drugs: No Review of Systems Other: Per HPI Physical Examination - Physical Exam General: Alert, In no apparent distress HEENT: Atraumatic, Normocephalic Neck: Supple Respiratory: Clear to auscultation bilaterally, Normal air movement Cardiovascular: No edema, Regular rate/rhythm, Normal S1 S2 Gastrointestinal: Normal bowel sounds, Soft and benign Musculoskeletal: No clubbing Integumentary: No rashes Neurological: Normal speech, Normal tone - Studies Laboratory Data (last 24 hrs) 04/21/25 04/21/25 04/21/25 12:33 12:33 12:33 WBC 5.60 Hgb 14.4 Hct 43.1 Plt Count 129 L PT 18.5 H INR 1.66 Sodium 139 Potassium 4.0 BUN 15 Creatinine 1.17 H Glucose 119 H Magnesium 2.2 Total Bilirubin 0.6 AST 22 ALT 26 Alkaline Phosphatase 75 Assessment and Plan - Plan Assessment and plan Acute food bolus Dysphagia - Dr. Alanis consulted, EGD immediately - Gentle IV fluids - Thiamine, multivitamin, glucagon given in the ED - Consult speech therapy - Slowly advancing diet History of atrial fibrillation History of aortic valve replacement Hypothyroidism - Continuous telemetry - Continue home medications as appropriate DVT ppx SCD Full code LOS 24 hour OBS Discharge Plan: Home Plan to discharge in: 24 Hours - Advance Directives Does patient have a Living Will: No Does patient have a Durable POA for Healthcare: No Time Spent Managing Pts Care (In Minutes): 55
[2025-04-21] MEDS ORDERED: ETOMIDATE 20 MG/10 ML VIAL IV ONE ×2 (17:09→17:10)
[2025-04-21] MEDS ORDERED: LIDOCAINE 1% MPF 5 ML VIAL ONE (17:09)
[2025-04-21] MEDS ORDERED: ONDANSETRON 4 MG/2 ML VIAL ONE (17:09)
[2025-04-21 17:48] VITALS: O2SAT 96
[2025-04-21] MEDS: NA CHLORIDE 0.9% 1,000 ML IV SCH (18:13)
[2025-04-21] MEDS ORDERED: HYDRALAZINE HCL 20 MG/ML VIAL IV PRN (18:54)
[2025-04-21] MEDS ORDERED: FUROSEMIDE 20 MG TABLET PO PRN (19:59)
[2025-04-21] MEDS ORDERED: AMITRIPTYLINE 25 MG TAB PO PRN (19:59)
[2025-04-21] MEDS: APIXABAN 5 MG TABLET PO SCH (20:48)
[2025-04-21] MEDS: PANTOPRAZOLE 40 MG INJ IVP SCH (20:48)
--- NOTE | 2025-04-21 20:55 | CON ---
Reason For Consultation: Foreign body and esophageal obstruction. History Of Presenting Illness: The patient is an 84-year-old woman, came to the ER with complaints o f swallowing issues and persistent vomiting after she eats or drinks anything. Foreign body sensatio n in the throat. She states that she was okay until last night, had some chicken nuggets and soup. In the morning, she had no symptoms. However, she had taken 2 large pills of [id number] medica tion and since then she had felt that she has not been able to swallow, therefore presented to the ER . GI consultation was requested. She is still not able to tolerate any liquids as she drinks and th en has to throw it or regurgitate it backup. This has never happened in the past. Past Medical History: Coronary artery disease, hyperthyroidism, atrial fibrillation. Past Surgical History: Bilateral hip replacement, bilateral knee, heart valve, thyroidectomy. Family History: Noncontributory. Social History: Denies toxic habits. Review of Systems: GI: As in HPI, otherwise negative. Remainder of 10-point review of systems is negative. Physical Examination: Vital Signs: Reviewed. Blood pressure 142/92, pulse 100, respiratory rate 17, temperature 97.8. HEENT: Head atraumatic, normocephalic. Pupils equally reactive. Neck: Supple. Chest: Clear to auscultation bilaterally. Abdomen: Soft, nontender, nontender, nondistended. Bowel sounds present. Extremities: No pedal edema. Laboratory Data: Reviewed. No significant abnormality. Imaging: Reviewed. She had a soft tissue of the neck that was negative. Impression: 84-year-old woman with apparent foreign body in the esophagus. Plan: Continue current management. Keep n.p.o. We will schedule the patient for an emergent upper endoscopy. The risks and complications of the procedure which include, but are not limited to bleedi ng, infection, perforation, and anesthesia complication were discussed. She understands and agrees. US/MODL Voice ID: [id number] Report ID: [id number]
[2025-04-22] MEDS: LEVOTHYROXINE SOD 0.125 MG TAB PO SCH (08:25)
[2025-04-22] MEDS: DIPHENOX/ATROP SULF 1 TAB PO SCH (08:25)
--- NOTE | 2025-04-22 15:35 | P.PN ---
Date of Service: 04/22/25 Subjective Awake and reports feeling much better She is S/P EGD with no findings but patient reports being able to swallow since the EGD Patient reports having issues swallowing in the past but has not not had a problem vomiting to clear her airway Speech consulted and recommended MBS ROS 10 point ROS as noted above, otherwise negative Physical Exam General: NAD, Alert and oriented x3, afebrile HEENT: Atraumatic Neck: Supple Respiratory: Clear to auscultation bilaterally, Normal air movement Cardiovascular: No edema, RRR, Normal S1 S2 Gastrointestinal: Normal bowel sounds, Soft and benign on palpation Musculoskeletal: No clubbing Integumentary: No rashes Neurological: Normal speech, Normal tone Vitals Reviewed Problem list Acute food bolus Dysphagia History of atrial fibrillation History of aortic valve replacement Hypothyroidism Assessment and Plan Acute food bolus Dysphagia - Dr. Alanis consulted, EGD immediately - Gentle IV fluids - Thiamine, multivitamin, glucagon given in the ED - Speech therapy recommends MBS in the AM - Pureed diet per Speech History of atrial fibrillation History of aortic valve replacement Hypothyroidism - Continuous telemetry - Continue home medications as appropriate DVT ppx SCD Full code LOS 24 hour OBS Discharge Plan: Home Plan to discharge in: 24 Hours Time Spent Managing Pts Care (In Minutes): 35
[2025-04-22] MEDS: SUCRALFATE 1GM/10ML UCUP PO SCH (16:14)
[2025-04-22 18:17] VITALS: BMI 30.5
[2025-04-23 13:31] VITALS: BP 138/67; TEMP 97.6
--- NOTE | 2025-04-23 15:16 | P.DS ---
Admission Date: 04/22/25 Discharge Date: 04/23/25 Reason for Admission: Food bolus Brief History of Present Illness: Diagnosis Acute food bolus Dysphagia History of atrial fibrillation History of aortic valve replacement Hypothyroidism HPI 04/21/2025 Wyatt Fabian is an 84 year old female with Pmhx hypothyroidism, A-fib, who presents to the ED with dysphagia reporting a foreign body sensation is in his throat since last night. Dr. Bustos was consulted and took him for a scope immediately. Laboratory evaluation significant for BUN/creatinine 15/1.17, GFR 46, serum glucose 119. Chest x-ray reports "No acute intrathoracic abnormalities." Soft tissue neck reports "No acute cervical spine abnormality. Degenerative changes as above." Wyatt will be admitted to hospitalist service for further evaluation and treatment of food bolus, Dr. Alanis consulted. Hospital Course: Wyatt presented to the ED with the sensation of a foreign body in her throat. SHe had reported that this happens and she usually clears her throat by vomitting. Dr. Alanis performed an EGD, did not find a foreign body but Wyatt reports being able to swallow better. Speech therapy consulted and recommended an MBS which resulted with "no evidence for jayashree subglottic tracheal aspiration." As this has been an ongoing problem for Wyatt, she will need to follow up with Dr. Alanis for an esophageal dilation. Plan is to discharge on a soft GI bite sizes food with thin liquid . Wyatt has been cleared by Dr. Alanis for discharge. Physical Exam General: Alert and oriented x3, afebrile HEENT: Atraumatic Neck: Supple Respiratory: Clear BBS Normal air movement, on RA Cardiovascular: No edema, RRR, Normal S1 S2 Gastrointestinal: Normal bowel sounds, Soft on palpation, nontender Musculoskeletal: No clubbing Integumentary: No rashes Neurological: Normal speech, Normal tone <Roxana Schofield - Last Filed: 04/24/25 05:05> Admission Date: 04/22/25 Discharge Date: 04/24/25 <Radha Summers - Last Filed: 04/24/25 06:35> Disposition: ROUTINE DISCHARGE Discharge Condition: GOOD Vital Signs/Physical Exam: Temp Pulse Resp BP Pulse Ox 97.6 F 93 H 16 138/67 97 04/23/25 12:00 04/23/25 12:00 04/23/25 12:00 04/23/25 12:00 04/23/25 12:00 Laboratory Data at Discharge: WBC 5.60 thou/uL (4.3-10.9) 04/21/25 12:33 Hgb 14.4 g/dL (12.0-15.0) 04/21/25 12:33 Hct 43.1 % (36.0-45.0) 04/21/25 12:33 Plt Count 129 thou/uL (152-406) L 04/21/25 12:33 PT 18.5 SECONDS (10-13.0) H 04/21/25 12:33 INR 1.66 04/21/25 12:33 Sodium 139 mEq/L (136-145) 04/21/25 12:33 Potassium 4.0 mEq/L (3.5-5.1) 04/21/25 12:33 BUN 15 mg/dL (7-18) 04/21/25 12:33 Creatinine 1.17 mg/dL (0.55-1.02) H 04/21/25 12:33 Glucose 119 mg/dL (74-106) H 04/21/25 12:33 Magnesium 2.2 mg/dL (1.6-2.4) 04/21/25 12:33 Total Bilirubin 0.6 mg/dL (0.2-1.0) 04/21/25 12:33 AST 22 U/L (15-37) 04/21/25 12:33 ALT 26 U/L (13-56) 04/21/25 12:33 Alkaline Phosphatase 75 U/L (45-117) 04/21/25 12:33 <Roxana Schofield - Last Filed: 04/24/25 05:05> Vital Signs/Physical Exam: Temp Pulse Resp BP Pulse Ox 97.6 F 93 H 16 138/67 97 04/23/25 12:00 04/23/25 12:00 04/23/25 12:00 04/23/25 12:00 04/23/25 12:00 Laboratory Data at Discharge: WBC 5.60 thou/uL (4.3-10.9) 04/21/25 12:33 Hgb 14.4 g/dL (12.0-15.0) 04/21/25 12:33 Hct 43.1 % (36.0-45.0) 04/21/25 12:33 Plt Count 129 thou/uL (152-406) L 04/21/25 12:33 PT 18.5 SECONDS (10-13.0) H 04/21/25 12:33 INR 1.66 04/21/25 12:33 Sodium 139 mEq/L (136-145) 04/21/25 12:33 Potassium 4.0 mEq/L (3.5-5.1) 04/21/25 12:33 BUN 15 mg/dL (7-18) 04/21/25 12:33 Creatinine 1.17 mg/dL (0.55-1.02) H 04/21/25 12:33 Glucose 119 mg/dL (74-106) H 04/21/25 12:33 Magnesium 2.2 mg/dL (1.6-2.4) 04/21/25 12:33 Total Bilirubin 0.6 mg/dL (0.2-1.0) 04/21/25 12:33 AST 22 U/L (15-37) 04/21/25 12:33 ALT 26 U/L (13-56) 04/21/25 12:33 Alkaline Phosphatase 75 U/L (45-117) 04/21/25 12:33 <Radha Summers - Last Filed: 04/24/25 06:35> <Roxana Schofield - Last Filed: 04/24/25 05:05> Physician Review: Patient Assessed, Agree with Above Assessment and Plan <Radha Summers - Last Filed: 04/24/25 06:35> Home Medications: Amitriptyline HCl 0.5 tab PO BEDTIME PRN 04/21/25 Apixaban [Eliquis] 1 tab PO BID 04/21/25 Diphenox/Atropine [Lomotil*] 2.5 mg PO DAILY 04/21/25 Furosemide 1 tab PO DAILY PRN 04/21/25 Hydrocortisone 1 each TP DAILY PRN 04/21/25 Levothyroxine [Synthroid*] 1 tab PO DAILY 04/21/25 Physician Discharge Instructions: PROBLEM: Food Bolus/Dysphagia GOAL: Clear understanding of disease process INSTRUCTIONS: Diet: Puree with liquids Activity: Fall Precautions 1. Please call and schedule a follow-up appointment with your PCP in 3-5 days - Please follow-up with your PCP for medication refills/adjustments 2. Please call and schedule a follow-up appointment with Dr. Alanis in 3-5 days -Plan for esophageal dilation 3. Continue GI soft, soft bite-size with thin liquids 4. No activity restrictions 5. Return to the ED if symptoms worsen Followup: Abel Alanis MD [ACTIVE - CAN ADMIT] - Luis Manuel Montaño FNP [Primary Care Provider] - 1-2 Weeks
--- NOTE | 2025-04-23 15:30 | RAD REPORT ---
Modified barium swallow exam with speech pathology service HISTORY: dysphgia Fluoroscopy Time: 3:19 minutes Cumulative dose: 55.94 mGy IMPRESSION: Please see the speech pathology service report for details. Barium contrast of multiple consistencies was provided the patient orally by the speech pathology dep artment. Fluoroscopic observation was performed during swallowing. The radiologist was not present for the examination. Provided images demonstrate no evidence for jayashree subglottic tracheal aspiration .
== END 2025-04-23 16:25 | disposition home or self-care (01) | DRG 394 ==
LOC: ER 11:39 → 2ND 16:08 → OBSVTOIN 04-22 15:38
PROVIDERS: ADMIT Internal Medicine; ATTEND Family Medicine
PROC: 0DB38ZX Excision of Lower Esophagus, Via Natural or Artificial Opening Endoscopic, Diagnostic (ICD-10-PCS; principal; 2025-04-21 16:00)
DX: T18.128A Food in esophagus causing other injury, initial encounter (principal); I48.92 Unspecified atrial flutter; E03.9 Hypothyroidism, unspecified; K22.2 Esophageal obstruction; K20.90 Esophagitis, unspecified without bleeding; K29.70 Gastritis, unspecified, without bleeding; I25.10 Atherosclerotic heart disease of native coronary artery without angina pectoris; R13.10 Dysphagia, unspecified; Z88.5 Allergy status to narcotic agent; Z95.2 Presence of prosthetic heart valve; Z79.01 Long term (current) use of anticoagulants; Z96.643 Presence of artificial hip joint, bilateral
CPT/HCPCS: 36415; 70360; 71045; 74230; 80048; 80076; 83735; 83880; 84484; 85025; 85610; 88305; 88312; 92610; 92611; 93005; 99284; G0378; J1610; J2003; J2405; J2470; J2704; J3411; J7030; J7040